=== PATIENT | female | born 2000 | race Hispanic/Latino ===

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

== ENCOUNTER 2024-08-08 00:13 | Emergency (ER) | payer BC ==
[~2024-08-08] VITALS: Ht 160 cm; Wt 62.6 kg
--- NOTE | 2024-08-08 00:18 | NUR ---
UA CUP PROVIDED
[2024-08-08 02:52] LABS: BASOPHILS # (AUTO) 0.02 K/uL (0.00-0.20); BASOPHILS % (AUTO) 0.3 % (0.0-5.0); EOSINOPHILS # (AUTO) 0.02 K/uL (0.00-0.70); EOSINOPHILS % (AUTO) 0.3 % (0.0-8.0); HEMATOCRIT 42.2 % (36-48); IMMATURE GRANULOCYTE ABSOLUTE 0.04 K/uL (0-1); LYMPHOCYTES # (AUTO) 1.3 K/uL (1.0-4.8); LYMPHOCYTES % (AUTO) 21.3 % (21.0-51.0); MEAN CORPUSCULAR HEMOGLOBIN 31.1 pg (27.0-33.0); MEAN CORPUSCULAR HGB CONC 34.6 g/dL (32.0-36.0); MEAN CORPUSCULAR VOLUME 89.8 fL (80-100); MONOCYTES # (AUTO) 0.6 K/uL (0.1-1.0); MONOCYTES % (AUTO) 9.4 % (3.0-13.0); NEUTROPHILS # (AUTO) 4.2 K/uL (1.8-7.7); NEUTROPHILS % (AUTO) 68.1 % (40.0-77.0); PLATELET COUNT (AUTO) 261 K/uL (130-400); RED CELL DISTRIBUTION WIDTH 11.5 % (11.0-15.5); WHITE BLOOD COUNT (AUTO) 6.2 K/uL (4.8-10.8)
[2024-08-08 03:01] LABS: APPEARANCE,URINE CLOUDY (CLEAR); BILIRUBIN,URINE NEGATIVE (NEGATIVE); COLOR,URINE LIGHT-YELLOW (YELLOW); GLUCOSE, URINE (UA) NEGATIVE (NEGATIVE); KETONES,URINE 10 mg/dL (NEGATIVE); LEUKOCYTE ESTERASE ,URINE 75 Leu/uL (NEGATIVE); NITRATE,URINE NEGATIVE (NEGATIVE); OCCULT BLOOD,URINE NEGATIVE (NEGATIVE); PH,URINE 6.5 (5.0-8.0); PROTEIN,URINE NEGATIVE (NEGATIVE); UROBILINOGEN,URINE 0.2 mg/dL (0.2-1.0)
[2024-08-08 03:03] LABS: CREATININE 0.8 mg/dL (0.5-1.0); POTASSIUM 3.2 mmol/L (3.5-5.1)
[2024-08-08 03:04] LABS: ADD UA MICROSCOPIC YES
[2024-08-08 03:06] LABS: CALCIUM OXALATE CRYSTALS,UR RARE /LPF (None Seen); MUCUS,URINE RARE LPF (None Seen); SQUAMOUS EPITHELIAL CELL,UR MOD /HPF (0-2)
[2024-08-08 04:01] VITALS: TEMP 98.6
[2024-08-08] MEDS ORDERED: IOHEXOL-350 75 ML VIAL IV ONE (04:17)
[2024-08-08] MEDS: levoFLOXacin 750 MG/D5W 150ML BAG IV ONE (04:38)
[2024-08-08] MEDS: metRONIDazole 500MG/100ML BAG IV SCH (04:38)
[2024-08-08] MEDS: LOPERAMIDE 1 MG/7.5 ML UDCUP PO SCH (04:38)
[2024-08-08] MEDS: LACTATED RINGERS 1000ML 1,047 ML IV ONE (04:39)
[2024-08-08] MEDS: morPHINE 4 MG SYG IVP ONE (04:40)
--- NOTE | 2024-08-08 06:51 | NUR ---
REPORT RECEIVED FROM SOURAV BYRNE
--- NOTE | 2024-08-08 06:54 | ERN ---
General Chief Complaint: Abdominal Pain Stated Complaint: ABD PAIN Time Seen by MD: 00:38 History of Present Illness Initial Comments Yeimy is a very pleasant 23-year-old female with no significant past medical history comes in today with a chief complaint of right lower quadrant pain. Patient reports that she ate some food from a food truck 3 days ago and since then has been having abdominal pain. Patient was concerned that she may have appendicitis as her pain is in the right lower quadrant. Patient denies any other symptoms. Allergies: Coded Allergies: No Known Drug Allergies (Unverified Allergy, 11/16/13) Home Meds No Active Prescriptions or Reported Meds Past Medical History Past Medical History: No Pertinent History Past Surgical History: Other Surgical History Other: RT WRIST Female( History) LMP: Jul 26, 2024 ROS Dictation Constitutional: Negative for fever,chills, and weight loss Eyes: Negative for injury, pain,redness, and discharge ENT: Negative for injury,pain or swelling Cardiovascular: Negative for chest pain, palpitations, and edema Respiratory: Negative for shortness of breath, cough, and wheezing, Abdomen/GI: Positive for abdominal pain and right lower quadrant pain Back: Negative for injury and pain : Negative for injury, bleeding and discharge MS/Extremity: Negative for injury and deformity Skin: Negative for rash, and discoloration Neuro: Negative for headache, weakness, numbness, tingling, and seizure Psych: Negative for suicide ideation, homicidal ideation, and hallucinations Physical Exam Physical Exam Dictation General: awake, alert, NAD Head/Face: Normocephalic, atraumatic Eyes: PERRL, EOMI ENT: oral cavity clear, Neck: Trachea midline, supple Cardiovascular: RRR, normal S1/S2, No MRGs, no JVD Respiratory: CTAB, no respiratory distress, No rales or wheezes Abdomen: Pain with palpation in the right lower quadrant Skin: Warm, dry, normal turgor, no rash MS/Extremity: Pulses equal Neuro: COAx4, GCS 15, strength 5/5, CN 2-12 intact Results Laboratory and Microbiology Lab and Micro Result Laboratory Tests Test 08/08/24 02:42 White Blood Count 6.2 K/uL (4.8-10.8) Red Blood Count 4.70 MIL/uL (4.00-5.50) Hemoglobin 14.6 g/dL (12.0-16.0) Hematocrit 42.2 % (36-48) Mean Corpuscular Volume 89.8 fL (80-100) Mean Corpuscular Hemoglobin 31.1 pg (27.0-33.0) Mean Corpuscular Hemoglobin Concent 34.6 g/dL (32.0-36.0) Red Cell Distribution Width 11.5 % (11.0-15.5) Platelet Count 261 K/uL (130-400) Mean Platelet Volume 11.0 fL (7.5-10.5) H Immature Granulocyte % (Auto) 0.6 % (0-1) Neutrophils (%) (Auto) 68.1 % (40.0-77.0) Lymphocytes (%) (Auto) 21.3 % (21.0-51.0) Monocytes (%) (Auto) 9.4 % (3.0-13.0) Eosinophils (%) (Auto) 0.3 % (0.0-8.0) Basophils (%) (Auto) 0.3 % (0.0-5.0) Neutrophils # (Auto) 4.2 K/uL (1.8-7.7) Lymphocytes # (Auto) 1.3 K/uL (1.0-4.8) Monocytes # (Auto) 0.6 K/uL (0.1-1.0) Eosinophils # (Auto) 0.02 K/uL (0.00-0.70) Basophils # (Auto) 0.02 K/uL (0.00-0.20) Absolute Immature Granulocyte (auto 0.04 K/uL (0-1) Nucleated Red Blood Cells 0.0 % (0.0-0.19) Urine Color LIGHT-YELLOW (YELLOW) Urine Appearance CLOUDY (CLEAR) H Urine pH 6.5 (5.0-8.0) Urine Specific [place] 1.009 (1.001-1.031) Urine Protein NEGATIVE mg/dL (NEGATIVE) Urine Glucose (UA) NEGATIVE mg/dL (NEGATIVE) Urine Ketones 10 mg/dL (NEGATIVE) H Urine Occult Blood NEGATIVE (NEGATIVE) Urine Nitrate NEGATIVE (NEGATIVE) Urine Bilirubin NEGATIVE mg/dL (NEGATIVE) Urine Urobilinogen 0.2 mg/dL (0.2-1.0) Urine Leukocyte Esterase 75 Ismael/uL (NEGATIVE) H Urine RBC 2-5 /HPF (0-1) H Urine WBC 2-5 /HPF (0-1) H Urine Squamous Epithelial Cells MOD /HPF (0-2) Urine Calcium Oxalate Crystals RARE /LPF (None Seen) Urine Bacteria None /HPF (None Seen) Sodium Level 135 mmol/L (136-145) L Potassium Level 3.2 mmol/L (3.5-5.1) L Chloride Level 99 mmol/L (101-111) L Carbon Dioxide Level 28 mmol/L (21-32) Blood Urea Nitrogen 6 mg/dL (7-18) L Creatinine 0.8 mg/dL (0.5-1.0) Glomerular Filtration Rate Calc 107 mL/min (>90) Random Glucose 100 mg/dL (70-105) Total Calcium 9.0 mg/dL (8.5-10.1) Lipase 32 U/L (16-77) Serum Test, Qualitative NEGATIVE (NEGATIVE) MDM Patient was had a CT scan abdomen and pelvis with IV contrast which shows no evidence of acute appendicitis. Patient went this time we will be discharged with oral antibiotics for infective colitis. MDM: Differential diagnosis: Colitis Rationale: Tests considered and ordered secondary to shared decision making include: Previous outside records reviewed: Old ER visits. Risk of complication and/or morbidity or mortality of patient management: None Medications-Per medication reconciliation Need for hospitalization: Patient does not meet criteria for hospitalization. Need for emergency major/minor surgery: No There are no social concerns with this patient. Prescription drug management Prescriptions will include symptomatic care Patient's prior external medical records from other ER visits were reviewed by me as indicated. Prior testing and results from previous visits were reviewed. Prior tests were taken into account with medical decision making and resource utilization, independent historian/historians were used to obtain complete medical history. I independently interpreted the test that were performed, results were reviewed by me and considered findings on radiology if ordered. Medical management and examination interpretation discussions were had by me with other qualified healthcare professionals as indicated for the patient's care. ED Course Orders Procedure Category Date Status Time Vital Signs Per CPOE 08/08/24 Transmitted Routine 00:30 Saline Lock Iv CPOE 08/08/24 Transmitted 00:30 Cbc With Differential LAB 08/08/24 Complete 00:30 Lipase LAB 08/08/24 Complete 00:30 Testing, LAB 08/08/24 Complete Serum Hcg 00:30 Urinalysis Profile LAB 08/08/24 Complete 00:30 Basic Metabolic Panel LAB 08/08/24 Complete 00:30 Culture Urine JUSTIN 08/08/24 In Process 03:04 Ct Abdomen/Pelvis CT 08/08/24 Taken W/Contrast 03:28 Loperamide (Immodium PHA 08/08/24 In Process Liquid) 03:30 Morphine 4mg Syg PHA 08/08/24 Complete (Morphine 4mg Syg) 03:30 Lactated Ringers PHA 08/08/24 Complete 1000ml (Lactated 03:30 Levofloxacin 750 PHA 08/08/24 Complete Mg/D5w 150 Ml 03:30 Metronidazole PHA 08/08/24 In Process 500mg/100ml Bag 03:30 Iohexol (Omnipaque) PHA 08/08/24 Complete 04:17 Current Medications Medications (Trade) Dose Ordered Sig/Venessa Route PRN Reason Start Time Stop Time Status Last Admin Dose Admin Iohexol (Omnipaque) 75 ml STK-MED ONCE IV 08/08/24 04:17 08/08/24 04:17 DC Lactated Ringer's 1,047 ml @ 349 mls/hr ONCE ONCE IV 08/08/24 03:30 08/08/24 06:29 DC 08/08/24 04:39 Levofloxacin/ Dextrose (LEvaquIN 750 MG/ D5W 150 ML) 750 mg ONCE ONCE IV 08/08/24 03:30 08/08/24 03:31 DC 08/08/24 04:38 Loperamide HCl (Immodium Liquid) 2 mg ONCE PO 08/08/24 03:30 09/07/24 03:29 08/08/24 04:38 Metronidazole/ Sodium Chloride (flaGYL) 500 mg Q8H IV 08/08/24 03:30 08/18/24 03:29 08/08/24 04:38 Morphine Sulfate (morPHINE 4MG SYG) 4 mg ONCE ONCE IVP 08/08/24 03:30 08/08/24 03:31 DC 08/08/24 04:40 Vital Signs Date Time Temp Pulse Resp B/P (MAP) Pulse Ox O2 Delivery O2 Flow Rate FiO2 08/08/24 04:01 98.6 66 20 122/88 100 Room Air* 0 21 08/08/24 00:14 98.4 113 20 140/89 98 Room Air DX & DISP Disposition: Discharge Departure Impression: Primary Impression: Colitis Condition: Stable Scripts Metronidazole (Metronidazole) 500 Mg Tablet 1 TAB PO TID for 7 Days, #21 TAB 0 Refills Prov: GRETTA ALMAGUER MD 08/08/24 Levofloxacin (Levofloxacin) 500 Mg Tablet 500 MG PO DAILY for 7 Days, #7 TAB Prov: GRETTA ALMAGUER MD 08/08/24 Additional Instructions: Please follow up with your primary care physician in the next 1-7 days for continuance of care. Please take Imodium as directed on package. Please take antibiotics as prescribed. Referrals: KRISTINE VALDERRAMA (PCP) GRETTA ALMAGUER MD Aug 08, 2024 06:54
[2024-08-08] MEDS ORDERED: LEVO-70 PO (07:07)
[2024-08-08] MEDS ORDERED: METR-172 PO (07:07)
--- NOTE | 2024-08-08 07:12 | NUR ---
20G CATH TO [facility] REMOVED INTACT
[2024-08-08 07:32] VITALS: BP 113/74; PULSE 79; RESP 17; O2SAT 100
--- NOTE | 2024-08-08 08:30 | HMCIMG ---
Exam Type: CT ABDOMEN/PELVIS W/CONTRAST Clinical Information: RLL abd pain r/o appendicitis Comparison: None Contrast: 100 cc's Isovue 370 IV, no complications or adverse reactions CT Dose Index (CTDI): 31.60 mGy Dose Length Product (DLP): 1740.80 total mGy-cm Findings: No evidence of nephro or ureterolithiasis is found. No hydronephrosis or ureteral dilatation is seen. The lung bases are clear. The stomach is unremarkable. It shows no wall thickening. No gross ulceration is seen. It is not overly distended. There are no surrounding inflammatory changes. No wall lesions are identified to suggest cancer. The spleen is unremarkable. It is not enlarged. The pancreas shows normal anatomy. It is not fatty replaced. It shows no lesions. The pancreatic duct is not dilated. The gallbladder is unremarkable. It shows no cholelithiasis. The gallbladder wall is normal in thickness. There is no pericholecystic fluid. The is no acute or chronic inflammation noted. The adrenal glands are unremarkable. There is no enlargement. No lesions are noted. The liver is unremarkable. It shows no focal masses. The appendix shows a small appendicolith but no signs of inflammation. The small bowel is unremarkable. There is no evidence of dilatation to suggest obstruction. No evidence of adynamic ileus is seen. There is no small bowel wall thickening to suggest enteritis. The colon is unremarkable. The urinary bladder is unremarkable. There is no wall thickening to suggest tumor or inflammation. There are no intraluminal calculi. There are no diverticula. There is no evidence of chronic bladder outlet obstruction. There is no evidence of urinary bladder distention to suggest urinary retention. The other pelvic structures are unremarkable. The bony and vascular structures are unremarkable for the patient's age. IMPRESSION: No acute pathology. The appendix shows a small appendicolith but no signs of inflammation. This study was performed using dose reduction techniques to include automated exposure control and/or adjustment of the mA and/or kV according to patient size.
== END 2024-08-08 07:32 | disposition home or self-care (01) ==
LOC: EDH 00:13
DX: K52.9 Noninfective gastroenteritis and colitis, unspecified (principal)
CPT/HCPCS: 99284; 74177; 96365; 96375; 80048; 84703; 83690; 85025; 87086; 81001; 36415; 96368; J7120; J1956; J2270; J3490; Q9967